=== PATIENT | male | born 1965 | race African-American/Black ===

== ENCOUNTER 2019-07-03 07:09 | Day surgery (SDC) | payer BC, OTHER ==
[~2019-07-03] VITALS: Ht 170.2 cm; Wt 78.0 kg
[~2019-07-03 07:09] MED LIST: ASPI81TA85 PO; HYDR-2541 PO; HYDR25TAB PO; LIPI80TA PO; LOSA100T50 PO; PLAV1TAB2 PO; SPIR50TA4 PO
[2019-07-03] MEDS ORDERED: AMOX250C PO (07:32)
[2019-07-03] MEDS ORDERED: NS 1,000 ML IV ONE (08:00)
[2019-07-03] MEDS ORDERED: LIDOCAINE 2% INJ 100 MG/5 ML SDV (FOR ANES.) As Ordered ONE (08:14)
[2019-07-03] MEDS ORDERED: PROPOFOL 200 MG/20 ML VIAL As Ordered ONE (08:14)
--- NOTE | 2019-07-03 08:25 | ROOR ---
Patient Name: Samm Stone Procedure Date: 07/03/2019 8:02 AM Date of : 1965 Age: 53 Room: [facility] Gender: Male Note Status: Finalized Procedure: Colonoscopy Indications: High risk colon cancer surveillance: Personal history of colonic polyps Providers: Juan ROMERO MD Referring MD: Lisa Garcia MD Requesting Provider: Medicines: Monitored Anesthesia Care Complications: No immediate complications. Procedure: Pre-Anesthesia Assessment: - The heart rate, respiratory rate, oxygen saturations, blood pressure, adequacy of pulmonary ventilation, and response to care were monitored throughout the procedure. The Colonoscope was introduced through the anus and advanced to the terminal ileum, with identification of the appendiceal orifice and IC valve. The colonoscopy was performed without difficulty. The patient tolerated the procedure well. The quality of the bowel preparation was good. Findings: The perianal and digital rectal examinations were normal. Two pedunculated and sessile polyps were found in the sigmoid colon and hepatic flexure. The polyps were diminutive in size. These polyps were removed with a cold snare. Resection and retrieval were complete. Multiple medium-mouthed diverticula were found in the entire colon. The exam was otherwise without abnormality on direct and retroflexion views. Impression: - Two diminutive polyps in the sigmoid colon and at the hepatic flexure, removed with a cold snare. Resected and retrieved. - Diverticulosis in the entire examined colon. - The examination was otherwise normal on direct and retroflexion views. Recommendation: - Repeat colonoscopy in 5 years for surveillance. - Resume Plavix (clopidogrel) at prior dose today. Juan Romero MD Juan ROMERO MD 07/03/2019 8:24:52 AM Electronically signed by Juan ROMERO MD Number of Addenda: 0 Note Initiated On: 07/03/2019 8:02 AM Estimated Blood Loss: Estimated blood loss: none.
[2019-07-03 08:45] VITALS: BP 137/98
== END 2019-07-03 08:51 | disposition home or self-care (01) ==
LOC: M OPP 07:09
PROVIDERS: ATTEND Internal Medicine Gastroenterology
DX: Z12.11 Encounter for screening for malignant neoplasm of colon (principal); Z86.010 Personal history of colon polyps; K63.5 Polyp of colon; Z79.82 Long term (current) use of aspirin; Z79.899 Other long term (current) drug therapy; Z88.5 Allergy status to narcotic agent